=== PATIENT | female | born 1975 | race Caucasian/White ===

== ENCOUNTER → 2020-02-02 14:36 | Outpatient (BNVA) | payer OTHER, SELFPAY | PROVIDERS: Family Provider Family Medicine; PCP Family Medicine; Visit Provider Nurse Practitioner Family | DX: J02.9 Acute pharyngitis, unspecified (principal); J34.89 Other specified disorders of nose and nasal sinuses; R51 Headache; R53.83 Other fatigue; Z20.828 Contact with and (suspected) exposure to other viral communicable diseases | CPT/HCPCS: 87635 ==

== ENCOUNTER 2020-03-24 14:37 | Outpatient (CLI) | payer OTHER, SELFPAY ==
--- NOTE | 2020-03-24 14:46 | MM_ITS ---
WS: [id number] BILATERAL DIGITAL SCREENING MAMMOGRAM WITH CAD CLINICAL INFORMATION: SCREENING HISTORY: Screening mammogram. No current complaints. COMPARISON: August 07, 2018 TECHNIQUE: Bilateral CC and MLO. FINDINGS: The breast are composed of extremely dense tissue, which can limit the detection of small underlying mass lesions. No suspicious focal mass, asymmetry, calcifications, or architectural distortion. No ev idence of malignancy. MM/[place] [id number] IMPRESSION: BI-RADS: 1-Negative FOLLOW UP: 1 Year Follow-up Recommend return to annual screening mammography.
== END 2020-03-24 14:38 | disposition home or self-care (01) ==
LOC: RADSHAW 14:43
PROVIDERS: PCP Family Medicine; Visit Provider Nurse Practitioner Family
DX: Z12.31 Encounter for screening mammogram for malignant neoplasm of breast (principal)
CPT/HCPCS: 77067

== ENCOUNTER → 2020-06-10 17:14 | Outpatient (BNVA) | payer OTHER, SELFPAY | PROVIDERS: PCP Family Medicine; Visit Provider Nurse Practitioner Family | DX: Z20.828 Contact with and (suspected) exposure to other viral communicable diseases (principal) | CPT/HCPCS: 87635 ==

== ENCOUNTER 2020-11-07 12:17 | Emergency (ER) | payer BC, SELFPAY ==
[2020-11-07 12:20] VITALS: BP 115/81; PULSE 104; RESP 18; TEMP 37.9; O2SAT 98; BMI 21.4
--- NOTE | 2020-11-07 12:26 | XRR_ITS ---
PROCEDURE INFORMATION: Exam: XR Chest Exam date and time: 11/07/2020 12:50 PM Age: 45 years old Clinical indication: Cough and fever; Additional info: Cough, fever TECHNIQUE: Imaging protocol: XR of the chest. Views: 1 view. COMPARISON: CT chest w con* [id number] 08/13/2017 6:43 PM FINDINGS: Lungs: Unremarkable. No consolidation. Pleural spaces: Unremarkable. No pleural effusion. No pneumothorax. Heart/Mediastinum: Unremarkable. No cardiomegaly. Bones/joints: Unremarkable. XR/XR chest 1V portable [id number] IMPRESSION: No acute findings.
--- NOTE | 2020-11-07 14:48 | ED_ITS ---
HPI - Fever General: Chief Complaint: Fever Stated Complaint: FEVER, N/V, COUGH, MUSCLED ACHES Time Seen by Provider: 11/07/20 14:44 History of Present Illness: HPI Narrative: Patient comes in for fever since Saturday. Patient reports cough and fever with generalized body aches. Patient appears mildly unwell. Patient does not appear toxic.'s are even. Patient does not appear in severe pain. Patient is employed at [employer] and they recently had a positive COVID-19 case. MD elicited complaint: fever and malaise Onset (ago): day(s) Context: sick contacts Exacerbating factors: nothing Relieving factors: nothing Associated symptoms: Reports chills and cough Review of Systems General: Reports: 10 or more systems reviewed and unremarkable except in HPI and below Const: Reports: fever(s) and chills Resp: Reports: non-productive cough PFSH ED PFSH: Medical History (Updated 11/07/20 @ 15:49 by PREMA Cummings) Encounter for surgical aftercare following surgery on the genitourinary system 11/21/18 Patient status post home biopsy 6 weeks ago. Refers a yellowish greenish vaginal discharge. Metronidazole prescribed prophylactically. Patient was counseled regarding against alcohol consumption while taking the metronidazole. Was also counseled regarding the benign pathology report on the cone biopsy and recommendation to repeat Cotesting in 6 months. 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 Barriga at [facility] 1. anterior cervical lip: rare dysplastic cells, excoriated mucosa 2. posterior cervical lip: no squamous dysplasia or endocervical atypia identified S/P breast biopsy, left Family History Family/Other Patient denies medical problems Patient denies any family history of hypertension, diabetes, heart disease, stroke, hypercholesterolemia, thryoid problems, breast cancer, ovarian cancer, uterine cancer, colon cancer. Social History Smoking and tobacco status: never smoked Alcohol intake: never Female Reproductive History: Date of last menstrual period: 11/04/20 Physical Exam Const: COMMON NORMALS: no acute distress and patient oriented x3 GENERAL APPEARANCE: cooperative HENMT: COMMON NORMALS: normocephalic, TM's normal bilaterally and Normal external nose present HEAD & SCALP: normal to inspection and normocephalic NOSE: Normal external nose present TYMPANIC MEMBRANE: TM's normal bilaterally MOUTH: Normal oral and palatal mucosa present THROAT: posterior oropharynx normal Eye: GENERAL EYE: appearance normal, both eyes and all related structures Neck/C-Spine: COMMON NORMALS: full ROM Lymph: LYMPHATIC: no lymphadenopathy noted Chest: COMMONS NORMALS: normal inspection of the chest Resp: COMMON NORMALS: normal respiratory effort EFFORT & INSPECTION: Yes able to speak in complete sentences Cardio: COMMON NORMALS: regular rate and regular rhythm RATE: regular rate RHYTHM: regular rhythm GI: COMMON NORMALS: non-tender Back/Pelvis: COMMON NORMALS: thoracic and lumbar spine normal to inspection Extremity: COMMON NORMALS: normal to inspection Neuro: COMMON NORMALS: patient oriented x3 and moves all extremities Psych: COMMON NORMALS: mental status grossly normal and cooperative Skin: COMMON NORMALS: no rashes or lesions noted GENERAL SKIN EXAM: no rashes or lesions noted Course Vital Signs: Vital signs: Vital Signs Temperature 100.3 F H 11/07/20 12:20 Pulse Rate 98 11/07/20 15:52 Respiratory Rate 20 H 11/07/20 15:52 Blood Pressure 115/81 11/07/20 12:20 Pulse Oximetry 100 11/07/20 15:52 MDM - Fever MDM Narrative: Medical decision making narrative: Patient comes in today for complaints of cough, congestion, and fever since Saturday. Patient reports exposure to a COVID-19 individual [address] her place of employment. On exam patient is alert oriented. Patient has occasional cough. Patient's lungs are clear to auscultation. Posterior pharynx slightly erythematous. Skin was warm and dry. Differential diagnosis includes upper respiratory infection, viral syndrome, COVID-19, influenza. COVID-19 test was positive. Chest x-ray was normal. CBC and CMP were unremarkable. Patient was given 1 L of IV fluid for concerns of dehydration on initial exam. Patient improvement in symptoms prior to discharge with IV fluids and ketorolac. Patient was recommended to provide supportive care was given instruction on COVID-19. Patient reported understanding and agreed to plan. Lab Data: Labs: Lab Results 11/07/20 11/07/20 11/07/20 Range/Units 15:08 15:08 15:08 WBC 4.0 (4.0-10.0) 10^3/ uL RBC 4.55 (4.1-5.3) 10^6/u L Hgb 12.4 (11.5-15.3) g/dL Hct 39.8 (37.0-47.0) % MCV 87.5 (81-99) fL MCH 27.3 L (28.0-34.0) pg MCHC 31.2 (30.0-36.0) g/dL RDW 15.0 (12.1-15.1) % Plt Count 237 (130-400) 10^3/c mm MPV 10.5 H (7.4-10.4) fL Neut % (Auto) 66.1 % Lymph % (Auto) 19.4 % [place] % (Auto) 13.4 % Eos % (Auto) 0.3 % Baso % (Auto) 0.5 % Neut # (Auto) 2.62 (1.8-7.7) 10^3/u L Lymph # (Auto) 0.8 (0.8-4.8) 10^3/u L [place] # (Auto) 0.5 (0.2-0.9) 10^3/u L Eos # (Auto) 0.0 (0.0-0.8) 10^3/u L Baso # (Auto) 0.0 (0.0-0.1) 10^3/u L Nucleated RBC % (a uto) 0 % Nucleated RBCs # 0.0 /100WBC Sodium 132 L (136-145) mmol/L Potassium 3.4 L (3.5-5.1) mmol/L Chloride 100 (98-107) mmol/L Carbon Dioxide 25 (22-29) mmol/L Anion Gap 10.4 (5-19) BUN 10 (6-20) mg/dL Creatinine 0.6 (0.5-0.9) mg/dL GFR Calculation 108.6 (90-130) mL/min Glucose 83 (65-115) mg/dL Calculated Osmolal ity 272 L (285-295) mOsm/k g Calcium 8.3 L (8.5-10.5) mg/dL Total Bilirubin 0.2 (0.15-1.2) mg/dL AST 15 (0-32) U/L ALT 7 (0-33) U/L Alkaline Phosphata se 86 (35-105) IU/L Total Protein 7.2 (6.6-8.7) g/dL Albumin 4.2 (3.5-5.2) g/dL Globulin 3.0 (1.3-4.6) g/dL SARS-CoV-2 Ag (Rap id) Positive H (Negative) Discharge Plan Discharge Patient Disposition: Home Clinical Impression: COVID-19 Condition: Stable Prescriptions: No Action No Known Home Medications RF: 0 Discharge Orders: Discharge ED (Routine); Ordered 11/07/20 Ordered By: Preet Kelley Referrals: Nelsy Cummings MD [Primary Care Provider] - Discharge Diet: Usual diet Discharge Activity: Increase activity as tolerated Patient Instructions: Viral Syndrome (ED), Opioid Safety Activity Restrictions/Additional Instructions: Drink plenty of fluids. Use acetaminophen and ibuprofen for pain. Activity as tolerated. Self quarantine for 10 days since start of infection. Healthy diet. Avoid smoking. Get plenty of rest. Follow-up with primary care as needed. Return to the emergency department for worsening symptoms or new concerns. 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
[2020-11-07 15:16] LABS: Basophils % 0.5 %; Eosinophils % 0.3 %; Hematocrit 39.8 % (37.0-47.0); Hemoglobin 12.4 g/dL (11.5-15.3); Lymphocytes # 0.8 10^3/uL (0.8-4.8); Lymphocytes % 19.4 %; Mean Corpuscular HGB Conc 31.2 g/dL (30.0-36.0); Mean Corpuscular Hemoglobin 27.3 pg (28.0-34.0); Mean Corpuscular Volume 87.5 fL (81-99); Mean Platelet Volume 10.5 fL (7.4-10.4); Monocytes # 0.5 10^3/uL (0.2-0.9); Monocytes % 13.4 %; Neutrophils # 2.62 10^3/uL (1.8-7.7); Neutrophils % 66.1 %; Nucleated Red Blood Cells % 0 %; Platelet Count 237 10^3/cmm (130-400); Red Blood Count 4.55 10^6/uL (4.1-5.3)
[2020-11-07] MEDS: ketorolac 30 mg/mL INJ 15 MG IVP (15:19)
[2020-11-07] MEDS: sodium chloride 0.9% 1,000 ML 999 ML IV (15:22)
--- NOTE | 2020-11-07 15:22 | PC.NURSE ---
pt provided with a bedside commode and specimen cup. pt verbalizes understanding of providing a urine sample.
[2020-11-07 15:34] LABS: Alanine Aminotransferase 7 U/L (0-33); Albumin Level 4.2 g/dL (3.5-5.2); Alkaline Phosphatase 86 IU/L (35-105); Anion Gap 10.4 (5-19); Aspartate Amino Transferase 15 U/L (0-32); Blood Urea Nitrogen 10 mg/dL (6-20); Calcium 8.3 mg/dL (8.5-10.5); Carbon Dioxide 25 mmol/L (22-29); Chloride 100 mmol/L (98-107); Glomerular Filtration Rate 108.6 mL/min (90-130); Glucose 83 mg/dL (65-115); Osmolality Calculated 272 mOsm/kg (285-295); Potassium 3.4 mmol/L (3.5-5.1); Sodium 132 mmol/L (136-145); Total Bilirubin 0.2 mg/dL (0.15-1.2); Total Protein 7.2 g/dL (6.6-8.7)
[2020-11-07 15:42] LABS: SARS Covid-2 Antigen Positive (Negative)
[2020-11-07 15:52] VITALS: PULSE 98; RESP 20; O2SAT 100
== END 2020-11-07 16:25 | disposition home or self-care (01) ==
PROVIDERS: Emergency Provider Nurse Practitioner Family; PCP Family Medicine
DX: U07.1 COVID-19 (principal)
CPT/HCPCS: 71045; 80053; 85025; 87426; 96361; 96374; 99283; J1885; J7030

== ENCOUNTER 2021-05-05 13:27 | Outpatient (CLI) | payer OTHER, SELFPAY ==
--- NOTE | 2021-05-05 13:42 | MM_ITS ---
WS: [id number] SCREENING DIGITAL MAMMOGRAM WITH CAD HISTORY: SCREENING COMPARISON: 03/24/2020 and 08/07/2018 Bilateral CC and MLO views submitted. Computer aided detection analyzed. Breast composition: The breasts are heterogeneously dense, which may obscure small masses. No suspici ous masses, microcalcifications or architectural distortion. MM/[place] [id number] IMPRESSION: BI-RADS: 1-Negative FOLLOW UP: 1 Year Follow-up
== END 2021-05-05 13:28 | disposition home or self-care (01) ==
LOC: RADSHAW 13:31
PROVIDERS: PCP Family Medicine; Visit Provider Nurse Practitioner Family
DX: Z12.31 Encounter for screening mammogram for malignant neoplasm of breast (principal)
CPT/HCPCS: 77067

== ENCOUNTER → 2022-12-07 09:45 | Outpatient (BNVA) | payer OTHER, SELFPAY | PROVIDERS: PCP Family Medicine; Visit Provider Obstetrics & Gynecology | DX: N92.6 Irregular menstruation, unspecified (principal); R53.83 Other fatigue | CPT/HCPCS: 83001; 84146; 84443; 84702; 85025 ==

== ENCOUNTER 2022-12-20 14:25 | Outpatient (CLI) | payer OTHER, SELFPAY ==
--- NOTE | 2022-12-20 14:45 | US_ITS ---
WS: [id number] US transvaginal [id number] HISTORY: N92.6 - Irregular menstruation, unspecified COMPARISON: 04/30/2019 Very limited diagnostic evaluation of the pelvic structures. Uterus: 10.3 cm x 6.0 cm x 5.5 cm. Enlarged anteverted uterus. The uterus is very difficult to visualize. Margins and the myometrium are poorly visualized. There is a large amount of shadowing. Uterus is much better visualized on the spencer or examination. Fibroid or mass would be difficult to exclude. Endometrium: 0.8 cm. Extremely limited evaluation of the endometrium. On several of the images the en dometrium appears enlarged and heterogeneous but this is seen on transverse imaging. Measurements frankie uld not be obtained on transverse imaging. Study is not diagnostic to exclude endometrial abnormality . Right ovary: 2.6 cm x 1.5 cm x 3.1 cm. Normal size and vascularity, no cystic or solid masses. Left ovary: 2.8 cm x 2.5 cm x 1.9 cm. Normal size and vascularity, no cystic or solid masses. Small f ollicle. No free fluid in the cul-de-sac. US/US transvaginal [id number] IMPRESSION: 1. Very limited diagnostic quality of the uterus and adnexa. This study is not adequate to exclude fibroids or endometrial abnormality. 2. On several of the images the endometrium appears larger than the 8 mm measu red. If there is continued uterine bleeding direct visualization may be necessa ry.
== END 2022-12-20 14:26 | disposition home or self-care (01) ==
PROVIDERS: PCP Family Medicine; Visit Provider Obstetrics & Gynecology
DX: N92.6 Irregular menstruation, unspecified (principal)
CPT/HCPCS: 76830; 83001; 84146; 84443; 84702; 85025

== ENCOUNTER 2023-03-05 07:42 | Day surgery (SDC) | payer OTHER, SELFPAY ==
[2023-02-28 09:31] VITALS: BMI 23.9
--- NOTE | 2023-02-28 09:48 | ANES.PREANE2 ---
Pre-Anesthetic Assessment Height/Weight: Height 1.57 m Weight 59.421 kg Operation Date: 03/05/23 09:45 Proposed Procedures p Hysteroscopy, dilation and curettage with Myosure 40264, 58746,N93.9,N92.0(Not Applicable) - Praveen Barriga MD s Dilation And Curettage (D&C)(Not Applicable) - Praveen Barriga MD Familial anesthetic complications: None Social No alcohol and No tobacco Exam alert, oriented x 3, clear to auscultation bilaterally and regular rate & rhythm Anesthetic Plan ASA status: 1 Anesthesia: General Risk of > 500 ml blood loss (7ml/kg in children): No Medications/Allergies Home Medications Medication Instructions Recorded Confirmed Last Taken Type acetaminophen 325 mg tablet 325 mg PO QID PRN Pain 11/28/21 02/28/23 Unknown History (Tylenol) multivitamin 1 tab PO DAILY 11/28/21 02/28/23 Unknown History Allergies Allergy/AdvReac Type Severity Reaction Status Date / Time povidone-iodine Allergy SWELLING, Verified 02/28/23 09:30 [From Betadine] REDNESS, RASH soap [From Betadine] Allergy SWELLING, Verified 02/28/23 09:30 REDNESS, RASH Sulfa (Sulfonamide Allergy SWELLING Verified 02/28/23 09:30 Antibiotics) [facility] Anesthesia Medical History Acute viral syndrome Encounter for surgical aftercare following surgery on the genitourinary system 11/21/18 Patient status post home biopsy 6 weeks ago. Refers a yellowish greenish vaginal discharge. Metronidazole prescribed prophylactically. Patient was counseled regarding against alcohol consumption while taking the metronidazole. Was also counseled regarding the benign pathology report on the cone biopsy and recommendation to repeat Cotesting in 6 months. 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 Barriga at [facility] 1. anterior cervical lip: rare dysplastic cells, excoriated mucosa 2. posterior cervical lip: no squamous dysplasia or endocervical atypia identified S/P breast biopsy, left Family History Family/Other Patient denies medical problems Patient denies any family history of hypertension, diabetes, heart disease, stroke, hypercholesterolemia, thryoid problems, breast cancer, ovarian cancer, uterine cancer, colon cancer. Social History Smoking and tobacco status: never smoked Alcohol intake: never Substance/Drug Use: never Data Anesthesia Cardiac Studies: No Data to Display
[2023-03-05] VITALS (12 sets, daily range): BP systolic 107–125; BP diastolic 66–75; PULSE 70–98; RESP 14–22; TEMP 36.5–36.8; O2SAT 97–99
[2023-03-05 08:11] LABS: OR HCG Qualitative Urine Negative (Negative)
[2023-03-05 08:44] LABS: Basophils % 0.5 %; Eosinophils # 0.1 10^3/uL (0.0-0.8); Eosinophils % 1.3 %; Hematocrit 38.2 % (36-47); Lymphocytes # 1.9 10^3/uL (0.8-4.8); Lymphocytes % 31.8 %; Mean Corpuscular HGB Conc 31.7 g/dL (30-55); Mean Corpuscular Hemoglobin 26.8 pg (27-33); Mean Corpuscular Volume 84.7 fl (85-98); Mean Platelet Volume 9.7 fL (7.4-10.4); Monocytes # 0.4 10^3/uL (0.2-0.9); Monocytes % 5.9 %; Neutrophils # 3.59 10^3/uL (1.8-7.7); Neutrophils % 60.3 %; Nucleated Red Blood Cells % 0 %; Platelet Count 335 10^3/cmm (157-399); Red Blood Count 4.51 10^6/uL (3.85-5.65); Red Cell Distribution Width 16.1 % (12.1-15.1); White Blood Count 5.95 10^3/uL (3.29-11.43)
[2023-03-05] MEDS: sodium chloride 0.9% 500 ML IV (08:46)
[2023-03-05] MEDS: sodium chloride 0.9% 1,000 ML 30 ML IV (08:47)
[2023-03-05] MEDS: scopolamine 1.5 Patch 1 PATCH TRANSDERMA (08:47)
[2023-03-05 09:05] LABS: Alanine Aminotransferase 8 U/L (0-33); Albumin Level 4.6 g/dL (3.5-5.2); Alkaline Phosphatase 84 U/L (35-105); Aspartate Amino Transferase 15 U/L (0-32); Blood Urea Nitrogen 14 mg/dL (6-20); Calcium 8.9 mg/dL (8.5-10.5); Carbon Dioxide 26 mmol/L (22-29); Chloride 105 mmol/L (98-107); Globulin 2.6 g/dL (1.3-4.6); Glomerular Filtration Rate 132.8 mL/min (90-130); Glucose 85 mg/dL (65-115); Osmolality Calculated 288 mOsm/kg (285-295); Sodium 139 mmol/L (136-145); Total Bilirubin 0.3 mg/dL (0.15-1.2); Total Protein 7.2 g/dL (6.6-8.7)
--- NOTE | 2023-03-05 09:16 | P.ANESUD_ITS ---
Pre-Anesthetic Update Pre-Anesthetic Assessment: Date of Surgery/Procedure: 03/05/23 Preop Laureen gnosis: Abnormal uterine bleeding Proposed Procedure: Operation Date: 03/05/23 09:25 Proposed Procedures p Hysteroscopy, dilation and curettage with Myosure 46435, 24372,N93.9,N92.0(Not Applicable) - Praveen Barriga MD s Dilation And Curettage (D&C)(Not Applicable) - Praveen Barriga MD Any changes to Pre-Anesthetic Assessment?: No Last Intake: Intake Last Liquid Date 03/04/23 Last Liquid Time 21:00 Last Solid Date 03/04/23 Last Solid Time 20:00 Labs Last 48hrs: Short CBC 03/05/23 Range/Units 08:25 WBC 5.95 (3.29-11.43) 10^ 3/uL Hgb 12.10 (11.27-16.99) g/ dL Hct 38.2 (36-47) % MCV 84.7 L (85-98) fl Plt Count 335 (157-399) 10^3/c mm Neut % (Auto) 60.3 % Neut # (Auto) 3.59 (1.8-7.7) 10^3/u L BMP 03/05/23 08:25 Sodium 139 Potassium 4.0 Chloride 105 Carbon Dioxide 26 BUN 14 Creatinine 0.5 Glucose 85 Calcium 8.9 Liver Function 03/05/23 Range/Units 08:25 Total Bilirubin 0.3 (0.15-1.2) mg/dL AST 15 (0-32) U/L ALT 8 (0-33) U/L Alkaline Phosphata se 84 (35-105) U/L Albumin 4.6 (3.5-5.2) g/dL Vitals: Temperature 97.7 F 03/05/23 08:02 Pulse Rate 75 03/05/23 08:02 Pulse Rhythm Regular 03/05/23 08:04 Pulse Strength 3+ Normal 03/05/23 08:04 Respiratory Rate 16 03/05/23 08:02 Blood Pressure 122/69 03/05/23 08:02 Blood Pressure Celeste n 86 03/05/23 08:02 Pulse Oximetry 98 03/05/23 08:02 Oxygen Delivery Me thod Room Air 03/05/23 08:04 Exam: Pre-Anes Outpt Exam: alert, oriented x 3, clear to auscultation bilaterally and regular rate & rhythm Cardiac Studies: No Data to Display
--- NOTE | 2023-03-05 09:51 | W.PM.OPSUD ---
Surgery/Procedure H&P Update DATE OF PROCEDURE: March 05, 2023 DATE H&P PERFORMED: 02/15/23 H&P UPDATE INFORMATION: I have reviewed H&P completed within last 30 days, I have examined patient prior to procedure and No changes to prior documentation PREOP DIAGNOSIS: Abnormal uterine bleeding PLANNED PROCEDURE: Operation Date: 03/05/23 09:25 Proposed Procedures p Hysteroscopy, dilation and curettage with Myosure 63461, 25673,N93.9,N92.0(Not Applicable) - Praveen Barriga MD s Dilation And Curettage (D&C)(Not Applicable) - Praveen Barriga MD
[2023-03-05] MEDS: ceFOXitin 2,000 MG in sodium chloride 0.9% (plus) 50 ML 100 MG IV (09:57)
[2023-03-05] MEDS: lidocaine-epi 2% 20 mL INJ INJECTION (10:17)
[2023-03-05 10:25] LABS: Add Urine Microscopic? NO; Charge for UA Resulting for Rev
--- NOTE | 2023-03-05 10:32 | P.OP_ITS ---
Operative Report Date of procedure: March 05, 2023 Pre-op diagnosis: Irregular menstrual bleeding (metrorrhagia) Post-op diagnosis: Same. Endometrial polyps Post-op findings: Endometrial polyp Procedure done: Hysteroscopy with D&C via MyoSure Hysteroscopic polypectomy Specimens removed/disposition: Endometrial curettings with polyps Surgeon: Praveen Barriga MD Estimated blood loss (mL): 5 IV fluids (mL): 1,000 Complications: None Findings: Endometrial polyps Procedure: After informed consent, the risks included but were not limited to bleeding, infection, injury to internal organs. The patient was counseled on a possible laparotomy and on the potential need for hysterectomy. The patient expressed understanding of the risks involved, all questions were answered, and the patient consented to the procedure. The patient was taken to the operating room where general anesthesia was administered. She was placed in the dorsal lithotomy position and prepped and draped in sterile fashion. A time out procedure was performed. The patient was examined under anesthesia and found to have a normal uterus with normal adnexa. A sterile weight speculum was placed in the vagina. The uterus was then gently sounded to 8 cm, and the cervix was dilated. The 0 degrees MyoSure hysteroscope was advanced gently to the uterine fundus while visualizing the monitor. Survey of the uterine cavity showed: Multiple endometrial polyps, the fundus shows proliferative endometrium; left ostium was visualized, and lateral wall with proliferative endometrium; right ostium visualized, and lateral wall with proliferative endometrium and endometrial poly p; anterior and posterior wall with endometrial polyps; endocervical canal is normal. The MyoSure device was advanced and the direct visualization the polyps were morcellated without complication. At the end of morcellation the fluid deficit was 260 mL and was estimated at approximately 200 mL were on the floor. There was minimal bleeding noted and the tenaculum removed with goad hemostasis noted. The patient tolerated the procedure well. The patient was taken to the recovery area in stable condition.
[2023-03-05 10:38] LABS: Bilirubin Urine Neg (Negative); Blood Urine Neg (Negative); Glucose Urine UA Norm (Normal); Ketones Urine Negative (Negative); Leukocyte Esterase Urine Negative (Negative); Nitrate Urine Negative (Negative); Protein Urine Neg (Negative); Specific Gravity, Urine 1.005 (1.005-1.030); Urine Appearance Clear (CLEAR); Urine Color Yellow (Yellow); Urobilinogen Urine Norm (Negative); pH Urine 7 (5-7)
--- NOTE | 2023-03-05 12:45 | ANE.PACU2 ---
Inpatient post-anesthesia follow up: Airway intact: Yes Vital signs: Temperature 97.8 F Pulse Rate 77 Respiratory Rate 16 Blood Pressure 113/72 Pulse Oximetry 97 Oxygen Delivery Me thod Room Air Oxygen Flow Rate Fraction of Inspir ed Oxygen Hydration adequate: Yes Nausea and vomiting: No Pain level: 1 Mental status: Baseline
== END 2023-03-05 12:55 | disposition home or self-care (01) ==
PROVIDERS: PCP Family Medicine; Visit Provider Obstetrics & Gynecology
PROC: 0UDB8ZZ Extraction of Endometrium, Via Natural or Artificial Opening Endoscopic (ICD-10-PCS; CPT 58558; principal; 2023-03-05 09:15)
PROC: (CPT 58120; 2023-03-05 09:15)
DX: N92.1 Excessive and frequent menstruation with irregular cycle (principal); N84.0 Polyp of corpus uteri
CPT/HCPCS: 58558; 36415; 80053; 81003; 81025; 84703; 85025; 86850; 86900; 88305; J0694; J1100; J2371; J2405; J2704; J3010; J7030; J7040

== ENCOUNTER → 2023-03-19 13:35 | Outpatient (BNVA) | payer OTHER, SELFPAY | PROVIDERS: PCP Family Medicine; Visit Provider Nurse Practitioner Women's Health | DX: R30.0 Dysuria (principal) | CPT/HCPCS: 81000; 87086 ==

== ENCOUNTER 2023-06-17 15:06 | Outpatient (CLI) | payer OTHER, SELFPAY ==
--- NOTE | 2023-06-17 15:10 | MM_ITS ---
WS: [id number] Bilateral screening 3D tomosynthesis digital mammogram, 06/17/2023 Clinical Data: SCREEN Comparison: 05/05/2021, 03/24/2020, 08/07/2018, 06/04/2017. Findings: The breast parenchymal pattern shows fat replacement. No spiculated masses or clustered calcification s are seen. There are no secondary signs of carcinoma. Impression: 1. Negative bilateral mammogram unchanged. 2. Recommend annual screening mammograms. MM/[place] [id number] BIRADS: 1-Negative FOLLOW UP: 1 Year Follow-up The CAD cash checker was used.
== END 2023-06-17 15:07 | disposition home or self-care (01) ==
LOC: RAD 15:06
PROVIDERS: PCP Family Medicine; Visit Provider Family Medicine
DX: Z12.31 Encounter for screening mammogram for malignant neoplasm of breast (principal)
CPT/HCPCS: 77063; 77067

== ENCOUNTER → 2023-07-04 16:30 | Outpatient (BNVA) | payer BC, SELFPAY | PROVIDERS: PCP Family Medicine; Visit Provider Family Medicine | DX: D36.7 Benign neoplasm of other specified sites (principal) | CPT/HCPCS: 88304 ==

== ENCOUNTER 2023-11-15 12:27 | Emergency (ER) | payer BC, SELFPAY ==
[2023-11-15 12:35] VITALS: BP 120/69; PULSE 97; RESP 16; TEMP 37.1; O2SAT 98; BMI 22.9
--- NOTE | 2023-11-15 12:45 | XR_ITS ---
WS: [id number] Portable AP upright chest, 11/15/2023 Clinical Data: cough/congestion Comparison: Portable chest, 11/07/2020 Findings: No nodules, masses or effusions are seen. The heart is normal. The pulmonary vascularity is not increased. No pneumonia or pneumothorax is seen. XR/XR chest 1V portable [id number] Impression: Negative chest.
--- NOTE | 2023-11-15 13:17 | ED_ITS ---
HPI - URI/Sore Throat 2 General: Chief Complaint: Shortness of Breath/Dyspnea Stated Complaint: sob, n/v, headache, body aches Time Seen by Provider: 11/15/23 12:30 Source: patient Mode of arrival: ambulatory Limitations: no limitations History of Present Illness: Patient is a 48-year-old female presents to ED today stating I have been sick for 12 days . She is complaining of a frequent dry cough. She states she has been her headache and some bodyaches. Patient states she has been to urgent care twice. She is currently taking azithromycin. She has also been instructed to take Flonase and May. Patient states she is starting to feel worn down and fatigued and does not feel like she is improving thus prompting her emergency evaluation. She is not having any chest pain. Her vital signs are completely normal upon arrival. MD elicited complaint: cough Onset (ago): day(s) (12 days) Consistency: constant Severity: moderate Able to tolerate fluids by mouth: Yes Exacerbating factors: nothing Relieving factors: nothing Context: sick contacts (niece with similar symptoms-she was flu A +) Associated symptoms: Deny abdominal pain, chills, diarrhea, ear or mastoid pain, fever(s), headache(s), nasal congestion, nausea, sinus pain or vomiting Treatments prior to arrival: cold medicine and antibiotics Review of Systems 2 Const: Reports: body aches, fatigue and malaise; Denies: fever(s) or chills Eyes: Denies: change in vision, blurry vision, photophobia, eye discomfort or eye discharge ENMT: Denies: throat pain, enlarged tonsils, odynophagia, swelling of lips/tongue, oral sores, ear or mastoid pain, ear discharge, nasal discharge, nasal congestion, post nasal drip or sinus pain Resp: Reports: dyspnea and non-productive cough; Denies: productive cough, wheezing, pain on inspiration, change in phlegm color, hemoptysis or chest congestion GI: Denies: abdominal pain, nausea, vomiting or diarrhea Musc: Denies: back pain Neuro: Denies: headache(s) or dizziness All/Imm: Denies: facial swelling or seasonal rhinorrhea PFSH ED 2 PFSH: Medical History COVID-19 Nonmenstrual vaginal bleeding 43-year-old female with irregular vaginal spotting bleeding, seen in the ER. Patient is status post cone biopsy in September 2018. No cervical lesions seen. Patient refers she's been using Depo-Provera shots and she did not get the last one as scheduled. The patient was counseled the most common causes of abnormal menstrual bleeding are: anovulation, abnormal growths in the uterus, such as polyps or fibroids, long active contraceptives and bleeding disorders. Evaluation entails blood tests to look for a bleeding disorder, anemia, or thyroid disease, a pelvic ultrasound, which can detect endometrial polyps and fibroids, an endometrial biopsy or a hysteroscopy. Treatment options are medical treatment and surgical treatment. But the best treatment of heavy menstrual bleeding will depend on the cause of the bleeding and the patient?s preferences with need to prevent or desire to have children in the future. Medical treatment can be Hormonal control, (the pill, skin patch, vaginal ring, shot, hormonal IUD, and implant), Antifibrinolytic medicines, Non-steroidal anti-inflammatory drugs, Progestin pills, GnRH agonists. 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 Benign polyp and disordered endometrium. H/O tubal ligation History of biopsy (10/08/18) CERVICAL CONE BIOPSY per Dr. Barriga at [facility] 1. anterior cervical lip: rare dysplastic cells, excoriated mucosa 2. posterior cervical lip: no squamous dysplasia or endocervical atypia identified S/P breast biopsy, left Family History Mother Cancer Cervical Grandfather Cancer Maternal and Paternal-Pancreatic Other Dementia Thyroid disease Denies family history of Liver disease Diabetes CAD (coronary artery disease) Aneurysm Autoimmune disease Hyperlipidemia Psychiatric illness Chronic kidney disease (CKD) Bleeding disorder Lung disease Hypertension Stroke Social History (Reviewed 11/15/23 @ 13:29 by RICKIE Sanchez Smoking and tobacco/nicotine status: never used tobacco/nicotine Alcohol intake: never Substance/Drug Use: never Lives independently: Yes Marital status: Single Number of children: 3 Current occupational status: employed 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 Special [place] needs: No Physical Exam 2 Const: COMMON NORMALS: no acute distress, average body habitus, patient oriented x3, no limitations, healthy appearing, alert and well nourished G ENERAL APPEARANCE: cooperative ORIENTATION/CONSCIOUSNESS: Yes awake, Yes oriented to person, Yes oriented to place and Yes oriented to time HENMT: COMMON NORMALS: normocephalic, atraumatic, hearing grossly normal bilaterally, external ears normal, EAC's normal, TM's normal bilaterally, Normal external nose present, Normal nasal mucous membranes and turbinates present, moist oral mucous membranes and oropharynx normal HEAD & SCALP: normal to inspection, normocephalic and atraumatic FACE & SINUS: normal facial exam and sinuses nontender; no sinus tenderness NOSE: Normal external nose present and Normal nasal mucous membranes and turbinates present EXTERNAL EAR: Yes external ears normal EXTERNAL AUDITORY CANAL: EAC's normal TYMPANIC MEMBRANE: TM's normal bilaterally THROAT: posterior oropharynx normal, tonsils normal and uvula midline Eye: COMMON NORMALS: Equal, round and reactive pupils present, EOMs intact bilaterally and conjunctivae normal CONJUNCTIVA: Yes conjunctivae normal P UPIL: Yes Equal, round and reactive pupils present Neck/C-Spine: COMMON NORMALS: no lymphadenopathy Chest: COMMONS NORMALS: normal inspection of the chest and normal palpation of entire chest wall Resp: COMMON NORMALS: normal respiratory effort and clear to auscultation bilaterally AUSCULTATION: clear to auscultation bilaterally Cardio: COMMON NORMALS: regular rate and regular rhythm RATE: regular rate RHYTHM: regular rhythm Extremity: COMMON NORMALS: no clubbing, cyanosis or edema, no calf tenderness and no pedal edema GENERAL: Yes normal exam except as noted Neuro: DAYAN COMA SCALE: document GCS findings Advance coma scale eye opening: Spontaneous Dayan coma scale verbal response: Orientated Advance coma scale motor response: Obey commands Advance coma scale total score: 15 COMMON NORMALS: patient oriented x3 SENSORIUM/ORIENTATION: Yes alert, Yes oriented to person, Yes oriented to place and Yes oriented to time Skin: COMMON NORMALS: no rashes or lesions noted GENERAL SKIN EXAM: no rashes or lesions noted Course 2 Vital Signs: Vital signs: Vital Signs Temperature 98.7 F 11/15/23 12:35 Pulse Rate 84 11/15/23 15:00 Respiratory Rate 16 11/15/23 12:35 Blood Pressure 116/76 11/15/23 15:00 Pulse Oximetry 100 11/15/23 15:00 Oxygen Delivery Me thod Room Air 11/15/23 15:00 MDM - URI/Sore Throat Medical Decision Making Patient here for signs and symptoms of an upper respiratory illness. Her main concern is cough x 12 days. She arrives no acute distress. Her vital signs are stable. Blood work is nonactionable. Her CXR is unremarkable. Patient is already on azithromycin. She is also taking Flonase and May. Will place her on a steroid taper. Recommend follow-up with primary care next week. Return ED precautions given. Respiratory panel collected and pending. Differential Diagnosis Likely upper respiratory infection, viral infection, bronchitis and influenza Lab Data I reviewed the patient's lab results. 11/15/23 14:20 11/15/23 14:20 Radiology Impressions Chest X-Ray 11/15/23 12:45 Impression: Negative chest. Laboratory Results WBC 12.61 10^3/uL (3.29-11.43) H 11/15/23 14:20 RBC 4.65 10^6/uL (3.85-5.65) 11/15/23 14:20 Hgb 11.50 g/dL (11.27-16.99) 11/15/23 14:20 Hct 38.2 % (36-47) 11/15/23 14:20 MCV 82.2 fl (85-98) L 11/15/23 14:20 MCH 24.7 pg (27-33) L 11/15/23 14:20 MCHC 30.1 g/dL (30-55) 11/15/23 14:20 RDW 17.2 % (12.1-15.1) H 11/15/23 14:20 Plt Count 359 10^3/cmm (157-399) 11/15/23 14:20 MPV 10.3 fL (7.4-10.4) 11/15/23 14:20 Neut % (Auto) 80.6 % 11/15/23 14:20 Lymph % (Auto) 11.7 % 11/15/23 14:20 [place] % (Auto) 7.0 % 11/15/23 14:20 Eos % (Auto) 0.1 % 11/15/23 14:20 Baso % (Auto) 0.2 % 11/15/23 14:20 Neut # (Auto) 10.16 10^3/uL (1.8-7.7) H 11/15/23 14:20 Lymph # (Auto) 1.5 10^3/uL (0.8-4.8) 11/15/23 14:20 [place] # (Auto) 0.9 10^3/uL (0.2-0.9) 11/15/23 14:20 Eos # (Auto) 0.0 10^3/uL (0.0-0.8) 11/15/23 14:20 Baso # (Auto) 0.0 10^3/uL (0.0-0.1) 11/15/23 14:20 Nucleated RBC % (auto) 0 % 11/15/23 14:20 Nucleated RBCs # 0.0 /100WBC 11/15/23 14:20 Sodium 135 mmol/L (136-145) L 11/15/23 14:20 Potassium 3.7 mmol/L (3.5-5.1) 11/15/23 14:20 Chloride 101 mmol/L (98-107) 11/15/23 14:20 Carbon Dioxide 21 mmol/L (22-29) L 11/15/23 14:20 Anion Gap 16.7 (5-19) 11/15/23 14:20 BUN 9 mg/dL (6-20) 11/15/23 14:20 Creatinine 0.6 mg/dL (0.5-0.9) 11/15/23 14:20 GFR Calculation 107.2 mL/min (90-130) 11/15/23 14:20 Glucose 98 mg/dL (65-115) 11/15/23 14:20 Calculated Osmolality 279 mOsm/kg (285-295) L 11/15/23 14:20 Calcium 8.8 mg/dL (8.5-10.5) 11/15/23 14:20 Total Bilirubin 0.2 mg/dL (0.15-1.2) 11/15/23 14:20 AST 19 U/L (0-32) 11/15/23 14:20 ALT 13 U/L (0-33) 11/15/23 14:20 Alkaline Phosphatase 115 U/L (35-105) H 11/15/23 14:20 Total Protein 7.6 g/dL (6.6-8.7) 11/15/23 14:20 Albumin 3.6 g/dL (3.5-5.2) 11/15/23 14:20 Globulin 4.0 g/dL (1.3-4.6) 11/15/23 14:20 All radiology interpretation(s) finalized by discharge Discharge Plan Discharge Patient Disposition: Home Clinical Impression: Viral upper respiratory tract infection with cough Condition: Stable Prescriptions: New prednisone 10 mg tablet 10 mg PO DAILY 6 Days Qty: 20 0RF Rx Instructions: Take 5 tabs on day 1-2, 4 tabs on day 3, 3 tabs on day 4, 2 tabs on day 5, and 1 tab on day 6 No Action norgestimate-ethinyl estradiol [Estarylla] 0.25-35 mg-mcg tablet 1 tab PO DAILY Qty: 84 3RF ondansetron 4 mg tablet,disintegrating 4 mg PO Q8H PRN (Reason: nausea and vomiting) Qty: 20 0RF fluticasone propionate [Flonase Allergy Relief] 50 mcg/actuation spray,suspension 1 spray intranasal DAILY Qty: 16 0RF azithromycin 250 mg tablet See Rx Instructions PO .COMPLEX Qty: 6 0RF Rx Instructions: take 500 mg today (day 1), then 250 mg for 4 days (days 2-5) PO acetaminophen 325 mg capsule 325 mg PO Q4H PRN (Reason: pain/fever) Discharge Orders: Discharge ED (Routine); Ordered 11/15/23 Ordered By: Adilene De Souza Referrals: Ricardo Eason MD [Primary Care Provider] - Patient Instructions: Upper Respiratory Infection (DC) Coding Level of Care Code ED Alining Inspector for Trisha Villegas
[2023-11-15 13:30] VITALS: BP 129/80; PULSE 91; O2SAT 100
[2023-11-15 14:48] LABS: Basophils % 0.2 %; Eosinophils % 0.1 %; Hematocrit 38.2 % (36-47); Lymphocytes # 1.5 10^3/uL (0.8-4.8); Lymphocytes % 11.7 %; Mean Corpuscular HGB Conc 30.1 g/dL (30-55); Mean Corpuscular Hemoglobin 24.7 pg (27-33); Mean Corpuscular Volume 82.2 fl (85-98); Mean Platelet Volume 10.3 fL (7.4-10.4); Monocytes # 0.9 10^3/uL (0.2-0.9); Neutrophils # 10.16 10^3/uL (1.8-7.7); Neutrophils % 80.6 %; Nucleated Red Blood Cells % 0 %; Platelet Count 359 10^3/cmm (157-399); Red Blood Count 4.65 10^6/uL (3.85-5.65); Red Cell Distribution Width 17.2 % (12.1-15.1); White Blood Count 12.61 10^3/uL (3.29-11.43)
[2023-11-15 15:00] VITALS: BP 116/76; PULSE 84; O2SAT 100
[2023-11-15 15:08] LABS: Alanine Aminotransferase 13 U/L (0-33); Albumin Level 3.6 g/dL (3.5-5.2); Alkaline Phosphatase 115 U/L (35-105); Aspartate Amino Transferase 19 U/L (0-32); Blood Urea Nitrogen 9 mg/dL (6-20); Calcium 8.8 mg/dL (8.5-10.5); Carbon Dioxide 21 mmol/L (22-29); Chloride 101 mmol/L (98-107); Creatinine Clr Calc Pharmacy 100.4923; Glomerular Filtration Rate 107.2 mL/min (90-130); Glucose 98 mg/dL (65-115); Osmolality Calculated 279 mOsm/kg (285-295); Sodium 135 mmol/L (136-145); Total Bilirubin 0.2 mg/dL (0.15-1.2); Total Protein 7.6 g/dL (6.6-8.7)
[2023-11-15 15:13] LABS: Anion Gap 16.7 (5-19); Potassium 3.7 mmol/L (3.5-5.1)
[2023-11-15 15:23] VITALS: BP 116/76; PULSE 87; O2SAT 99
[2023-11-15 15:29] LABS: Adenovirus Not Detected (NOT DETECT); Chlamydia Pneumoniae Not Detected (NOT DETECT); Coronavirus 229E,HKU1,NL63,OC4 Not Detected (NOT DETECT); Human Metapneumovirus Not Detected (NOT DETECT); Human Rhinovirus/Enterovirus Not Detected (NOT DETECT); Influenza A Not Detected (NOT DETECT); Influenza A H1 Not Detected (NOT DETECT); Influenza A H1-2009 Not Detected (NOT DETECT); Influenza A H3 Not Detected (NOT DETECT); Influenza B Not Detected (NOT DETECT); Mycoplasma Pneumoniae Not Detected (NOT DETECT); Parainfluenza Virus Type 1 Not Detected (NOT DETECT); Parainfluenza Virus Type 2 Not Detected (NOT DETECT); Parainfluenza Virus Type 3 Not Detected (NOT DETECT); Parainfluenza Virus Type 4 Not Detected (NOT DETECT); Respiratory Syncytial Virus A Not Detected (NOT DETECT); Respiratory Syncytial Virus B Not Detected (NOT DETECT); SARS-COV-2 Not Detected (NOT DETECT)
== END 2023-11-15 15:22 | disposition home or self-care (01) ==
PROVIDERS: Emergency Provider Physician Assistant; PCP Family Medicine
DX: J06.9 Acute upper respiratory infection, unspecified (principal)
CPT/HCPCS: 36415; 71045; 80053; 85025; 87486; 87581; 87633; 99284

== ENCOUNTER 2024-06-16 10:02 | Observation (INO) | payer BC, SELFPAY ==
[2024-06-08 10:16] LABS: Basophils % 0.4 %; Eosinophils # 0.1 10^3/uL (0.0-0.8); Eosinophils % 0.8 %; Hematocrit 37.3 % (36-47); Lymphocytes # 1.8 10^3/uL (0.8-4.8); Lymphocytes % 23.5 %; Mean Corpuscular HGB Conc 31.4 g/dL (30-55); Mean Corpuscular Hemoglobin 26.2 pg (27-33); Mean Corpuscular Volume 83.4 fl (85-98); Mean Platelet Volume 10.2 fL (7.4-10.4); Monocytes # 0.5 10^3/uL (0.2-0.9); Monocytes % 6.4 %; Neutrophils # 5.35 10^3/uL (1.8-7.7); Neutrophils % 68.6 %; Nucleated Red Blood Cells % 0 %; Platelet Count 343 10^3/cmm (157-399); Red Blood Count 4.47 10^6/uL (3.85-5.65); Red Cell Distribution Width 17.6 % (12.1-15.1); White Blood Count 7.79 10^3/uL (3.29-11.43)
[2024-06-08 10:20] LABS: Bilirubin Urine Negative (Negative); Blood Urine Non-haemolysed trace (Negative); Glucose Urine UA Negative (Normal); Ketones Urine Negative (Negative); Leukocyte Esterase Urine Negative (Negative); Nitrate Urine Negative (Negative); Protein Urine Negative (Negative); Specific Gravity, Urine 1.003 (1.005-1.030); Urine Appearance Clear (CLEAR); Urine Color Yellow (Yellow); Urobilinogen Urine 0.2 mg/dL (Negative); pH Urine 6.5 (5-7)
--- NOTE | 2024-06-08 10:23 | ANES.PREANE2 ---
Pre-Anesthetic Assessment Height/Weight: Height 5 ft 3 in Preop Diagnosis: Abnormal uterine bleeding unresponsive to medical management Operation Date: 06/16/24 07:00 Proposed Procedures p Total Vaginal Hysterectomy - 07421, N93.9(Not Applicable) - Praveen Barriga MD Was [employer] taken within 24 hours: N/A Was Clonidine taken within 24 hours: N/A Social No alcohol and No tobacco Exam alert, oriented x 3, clear to auscultation bilaterally and regular rate & rhythm Airway Submandibular: within normal limits Cervical ROM: within normal limits Mallampati: Class II Dentition: full Anesthetic Plan ASA status: 2 Anesthesia: General Other: No prior issues with anesthesia Plan to be n.p.o. at midnight prior to surgery Denies any cardiac or pulmonary issues METs greater than 4 Labs today reviewed and acceptable for procedure Plan for general anesthesia Medications/Allergies Home Medications Medication Instructions Recorded Confirmed Last Taken Type acetaminophen 325 mg capsule 325 mg PO Q4H PRN pain/fever 11/15/23 06/08/24 Unknown History hydroxyzine HCl 10 mg tablet 10 mg PO TID PRN anxiety #30 tabs 02/28/24 06/08/24 Unknown Rx fluoxetine 40 mg capsule 40 mg PO DAILY #60 caps 04/22/24 06/08/24 06/08/24 Rx Allergies Allergy/AdvReac Type Severity Reaction Status Date / Time povidone-iodine Allergy SWELLING, Verified 06/08/24 09:50 [From Betadine] REDNESS, RASH soap [From Betadine] Allergy SWELLING, Verified 06/08/24 09:50 REDNESS, RASH Sulfa (Sulfonamide Allergy SWELLING Verified 06/08/24 09:50 Antibiotics) [facility] Anesthesia Medical History Mild major depression COVID-19 Nonmenstrual vaginal bleeding 43-year-old female with irregular vaginal spotting bleeding, seen in the ER. Patient is status post cone biopsy in September 2018. No cervical lesions seen. Patient refers she's been using Depo-Provera shots and she did not get the last one as scheduled. The patient was counseled the most common causes of abnormal menstrual bleeding are: anovulation, abnormal growths in the uterus, such as polyps or fibroids, long active contraceptives and bleeding disorders. Evaluation entails blood tests to look for a bleeding disorder, anemia, or thyroid disease, a pelvic ultrasound, which can detect endometrial polyps and fibroids, an endometrial biopsy or a hysteroscopy. Treatment options are medical treatment and surgical treatment. But the best treatment of heavy menstrual bleeding will depend on the cause of the bleeding and the patient?s preferences with need to prevent or desire to have children in the future. Medical treatment can be Hormonal control, (the pill, skin patch, vaginal ring, shot, hormonal IUD, and implant), Antifibrinolytic medicines, Non-steroidal anti-inflammatory drugs, Progestin pills, GnRH agonists. 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 Benign polyp and disordered endometrium. H/O tubal ligation History of biopsy (10/08/18) CERVICAL CONE BIOPSY per Dr. Barriga at [facility] 1. anterior cervical lip: rare dysplastic cells, excoriated mucosa 2. posterior cervical lip: no squamous dysplasia or endocervical atypia identified S/P breast biopsy, left Family History Mother Cancer Cervical Grandfather Cancer Maternal and Paternal-Pancreatic Other Dementia Thyroid disease Denies family history of Liver disease Diabetes CAD (coronary artery disease) Aneurysm Autoimmune disease Hyperlipidemia Psychiatric illness Chronic kidney disease (CKD) Bleeding disorder Lung disease Hypertension Stroke Social History Smoking and tobacco/nicotine status: never used tobacco/nicotine Alcohol intake: never Substance/Drug Use: never Lives independently: Yes Marital status: Single Number of children: 3 Current occupational status: employed 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 Special [place] needs: No Female Reproductive History Date of last menstrual period: 05/10/24 Data Anesthesia 06/08/24 10:00 06/08/24 10:00 Short CBC 06/08/24 Range/Units 10:00 WBC 7.79 (3.29-11.43) 10^3/uL Hgb 11.70 (11.27-16.99) g/dL Hct 37.3 (36-47) % MCV 83.4 L (85-98) fl Plt Count 343 (157-399) 10^3/cmm Neut % (Auto) 68.6 % Neut # (Auto) 5.35 (1.8-7.7) 10^3/uL Urine 06/08/24 Range/Units 10:00 Urine Color Yellow (Yellow) Urine Appearance Clear (CLEAR) Urine pH 6.5 (5-7) Ur Specific Trout 1.003 L (1.005-1.030) Urine Protein Negative (Negative) Urine Glucose (UA) Negative (Normal) Urine Ketones Negative (Negative) Urine Nitrate Negative (Negative) Urine Bilirubin Negative (Negative) Ur Leukocyte Esterase Negative (Negative) Cardiac Studies: No Data to Display
[2024-06-08 10:32] LABS: Alanine Aminotransferase 7 U/L (0-33); Albumin Level 4.2 g/dL (3.5-5.2); Alkaline Phosphatase 105 U/L (35-105); Anion Gap 13.3 (5-19); Aspartate Amino Transferase 15 U/L (0-32); Blood Urea Nitrogen 9 mg/dL (6-20); Calcium 9.1 mg/dL (8.5-10.5); Carbon Dioxide 26 mmol/L (22-29); Chloride 101 mmol/L (98-107); Globulin 3.1 g/dL (1.3-4.6); Glomerular Filtration Rate 131.7 mL/min (90-130); Glucose 81 mg/dL (65-115); Osmolality Calculated 282 mOsm/kg (285-295); Potassium 3.3 mmol/L (3.5-5.1); Sodium 137 mmol/L (136-145); Total Bilirubin 0.3 mg/dL (0.15-1.2); Total Protein 7.3 g/dL (6.6-8.7)
[2024-06-08 10:52] LABS: Add Urine Microscopic? YES; UA Manual Slide Review YES; UA Slide Review UA Slide Review Perf
[2024-06-08 10:53] LABS: RBC Urine RARE /hpf (0-2); Squamous Epithelial Cell Urine 0-4 /hpf (0-5)
[2024-06-16] VITALS (16 sets, daily range): BP systolic 93–129; BP diastolic 54–78; PULSE 60–79; RESP 14–169; TEMP 36.3–37; O2SAT 95–100; BMI 22.1
[2024-06-16] MEDS: scopolamine 1.5 Patch 1 PATCH TRANSDERMA (06:52)
[2024-06-16] MEDS: sodium chloride 0.9% 1,000 ML 30 ML IV (06:55)
[2024-06-16] MEDS: metroNIDAZOLE IV 500 MG/100 ML PREMIX 100 MG IV (07:00)
--- NOTE | 2024-06-16 07:07 | P.ANESUD_ITS ---
Pre-Anesthetic Update Pre-Anesthetic Assessment: Date of Surgery/Procedure: 06/16/24 Preop Laureen gnosis: Abnormal uterine bleeding unresponsive to medical management Proposed Procedure: Operation Date: 06/16/24 08:00 Proposed Procedures p Total Vaginal Hysterectomy - 29155, N93.9(Not Applicable) - Praveen Barriga MD Any changes to Pre-Anesthetic Assessment?: No Last Intake: Intake Last Liquid Date 06/15/24 Last Liquid Time 22:30 Last Solid Date 06/15/24 Last Solid Time 20:00 Vitals: Temperature 97.6 F 06/16/24 06:41 Temperature Source Temporal Artery S can 06/16/24 06:41 Pulse Rate 77 06/16/24 06:41 Respiratory Rate 18 06/16/24 06:41 Blood Pressure 121/63 06/16/24 06:52 Blood Pressure Celeste n 82 06/16/24 06:41 Pulse Oximetry 100 06/16/24 06:41 Oxygen Delivery Me thod Room Air 06/16/24 06:48 Exam: Pre-Anes Outpt Exam: alert, oriented x 3, clear to auscultation b ilaterally and regular rate & rhythm Cardiac Studies: No Data to Display
[2024-06-16 07:16] LABS: OR HCG Qualitative Urine Negative (Negative)
--- NOTE | 2024-06-16 07:39 | W.PM.OPSUD ---
Surgery/Procedure H&P Update DATE OF PROCEDURE: June 16, 2024 DATE H&P PERFORMED: 06/08/24 H&P UPDATE INFORMATION: I have reviewed H&P completed within last 30 days, I have examined patient prior to procedure and No changes to prior documentation PREOP DIAGNOSIS: Abnormal uterine bleeding unresponsive to medical management PLANNED PROCEDURE: Operation Date: 06/16/24 08:00 Proposed Procedures p Total Vaginal Hysterectomy - 48376, N93.9(Not Applicable) - Praveen Barriga MD
[2024-06-16] MEDS: ceFAZolin 2,000 mg SDV 2000 MG IVP (08:37)
[2024-06-16] MEDS: lidocaine-epi 2% PF 1:200,000 20 mL SDV 10 ML INJECTION (08:53)
--- NOTE | 2024-06-16 09:44 | W.PM.BPON ---
Date of Procedure: 06/16/24 Surgeon: Praveen Barriga MD Ent Consultant(s): Procedure(s) performed: Total vaginal hysterectomy Findings of the procedure(s): Enlarged fibroid uterus Estimated blood loss: 1 Specimen(s) removed: Uterus Post-operative diagnosis: Status post total vaginal hysterectomy
--- NOTE | 2024-06-16 09:45 | P.OP_ITS ---
Operative Report Date of procedure: June 16, 2024 Pre-op diagnosis: Abnormal uterine bleeding Fibroid uterus Post-op diagnosis: same Procedure done: Total vaginal Specimens removed/disposition: Uterus Surgeon: Praveen Barriga MD Estimated blood loss (mL): 100 IV fluids (mL): 800 Urine output (mL): 50 Complications: None Procedure: After informed consent and risks, benefits, indications and alternatives reviewed with the patient was taken to the operating room. The patient was placed in dorsal lithotomy position prepped, and draped in the usual sterile fashion. The pre-procedure timeout verifying the correct patient, procedure, site and side, could not requirements was performed and acknowledge by the OR team. A Maldonado catheter was placed. A Bookwalter vaginal retractor was placed into the vagina in usual manner visualize the cervix. Cervix was grasped with a single tooth tenaculum and circumferentially infiltrated with 2% lidocaine with epinephrine. Then cervix was circumferentially incised with bovie and the bladder was dissected off the pubovesical cervical fascia anteriorly with a sponge stick and Metzenbaum scissors. The anterior peritoneal reflection was identified and the anterior cul-de-sac was entered sharply with Metzenbaum scissors. The same procedure was performed posteriorly and a posterior colpotom y was made through the posterior cul-de-sac space without difficulty and the posterior blade of the Bookwalter vaginal retractor was advanced posteriorly into the cul-de-sac. At this time, the left and right uterosacral ligaments were isolated and ligated with 0 Vicryl. The LigaSure device was placed over the uterosacral ligaments on either side and was then used in a serial fashion up through the cardinal ligaments bilaterally cross-clamped, cut, and sealed with the LigaSure device. Finally, the uterine arteries were cross-clamped, cut, sealed and ligated with the LigaSure device. Hemostasis was assured. The broad ligaments were then serially clamped, sealed and cut with the LigaSure device on both sides. Excellent hemostasis was visualized. Both cornua were clamped, sealed and cut with the LigaSure device. Then the pedicles were then suture ligated with excellent hemostasis. The uterus was excised and submitted for pathologic evaluation. No other abnormalities were noted in the pelvic cavity. The peritoneum was then closed in a pursestring fashion with 0 Vicryl suture. Bludigo given IV the vaginal cuff angles were closed with tihdra-fk-modir #0 Vicryl suture on both sides and transfixed with the ipsilateral cardinal and uterosacral ligaments. The remainder of the vaginal cuff was closed with #0 Vicryl in a running locked fashion. At this time, instruments were removed from the vagina at hemostasis assured. Then the Maldonado was noted yielding clear blue urine. The patient was taken out of dorsal lithotomy position and awakened from the general anesthesia. The patient tolerated the procedure well and was taken to the PACU recovery room in a stable condition. Sponge, lap, needle and instruments counts were correct x3.
--- NOTE | 2024-06-16 10:10 | ANE.PACU2 ---
Inpatient post-anesthesia follow up: Airway intact: Yes Vital signs: Temperature 98.6 F Pulse Rate 70 Respiratory Rate 14 Blood Pressure 96/55 Pulse Oximetry 98 Oxygen Delivery Me thod Room Air Oxygen Flow Rate Fraction of Inspir ed Oxygen Hydration adequate: Yes Nausea and vomiting: No Pain level: 1 Mental status: Baseline
[2024-06-16] MEDS: HYDROcodone-acetaminophen 5-325 mg Tablet PO ×2 (11:01→21:11)
[2024-06-16] MEDS: ketorolac 30 mg/mL INJ IVP ×3 (11:01→23:57)
[2024-06-16] MEDS: docusate sodium 100 mg Capsule PO (17:19)
[2024-06-17 05:25] VITALS: BP 106/66; PULSE 62; RESP 16; TEMP 36.8; O2SAT 98
[2024-06-17 06:05] LABS: Hematocrit 32.7 % (36-47); Mean Corpuscular HGB Conc 30.9 g/dL (30-55); Mean Corpuscular Hemoglobin 26.3 pg (27-33); Mean Corpuscular Volume 85.2 fl (85-98); Mean Platelet Volume 9.8 fL (7.4-10.4); Platelet Count 289 10^3/cmm (157-399); Red Blood Count 3.84 10^6/uL (3.85-5.65); Red Cell Distribution Width 17.6 % (12.1-15.1); White Blood Count 9.26 10^3/uL (3.29-11.43)
[2024-06-17 09:15] VITALS: BP 114/66; PULSE 78; RESP 17; TEMP 36.8; O2SAT 97
[2024-06-17] MEDS: ibuprofen 800 mg tablet PO (09:20)
[2024-06-17] MEDS: docusate sodium 100 mg Capsule PO (09:20)
[2024-06-17] MEDS: fluoxetine 20 mg Capsule 40 MG PO (09:20)
[2024-06-17] MEDS: HYDROcodone-acetaminophen 5-325 mg Tablet PO (11:50)
--- NOTE | 2024-06-17 14:54 | PM.OBGYDC ---
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 Ashby 49-year-old female G5, P3 with a history of abnormal uterine bleeding unresponsive to medical management. She was admitted for planned total vaginal hysterectomy. The procedure was performed without complication. Postop observation has been uneventful. She is afebrile and hemodynamically stable postoperative day 1. Tolerating diet well. Ambulating without difficulty. She was counseled regarding pelvic rest for 6 weeks (no sex, no tampons, no vaginal douches). Return to the emergency room if any fever, increased bleeding or pain and heavy weight lifting limitations to 10 pounds. Physical Exam Narrative: GA: Alert and oriented ?3. HEENT: WNL. Heart: Regular rate and rhythm. Lungs: Clear to auscultation bilaterally. Abdomen: Bowel sounds present, nontender. 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 Extremities: No edema, no cyanosis, no calves pain. Urinary Catheter Management: Maldonado: Cath Placed During This Visit: yes, but has since been removed by the nurse Reason for Continuing Indwelling Catheter: Decision to DC Catheter Urinary Catheter Date of Insertion: 06/16/24 Urinary Catheter Time of Insertion: 08:30 Date Urinary Catheter Removed: 06/17/24 Time Urinary Catheter Discontinued: 05:40 History History History 5 Term 3 0 Miscarriages/Ectopic 2 Living Children 3 Discharge Data Studies Completed and Pending Pending at discharge Category Date Time Status Pathology: Surgical [PTH] Routine Pth 06/16/24 09:06 Received Laboratory Results WBC 9.26 10^3/uL (3.29-11.43) 06/17/24 05:59 RBC 3.84 10^6/uL (3.85-5.65) L 06/17/24 05:59 Hgb 10.10 g/dL (11.27-16.99) L 06/17/24 05:59 Hct 32.7 % (36-47) L 06/17/24 05:59 MCV 85.2 fl (85-98) 06/17/24 05:59 MCH 26.3 pg (27-33) L 06/17/24 05:59 MCHC 30.9 g/dL (30-55) 06/17/24 05:59 RDW 17.6 % (12.1-15.1) H 06/17/24 05:59 Plt Count 289 10^3/cmm (157-399) 06/17/24 05:59 MPV 9.8 fL (7.4-10.4) 06/17/24 05:59 Neut % (Auto) 68.6 % 06/08/24 10:00 Lymph % (Auto) 23.5 % 06/08/24 10:00 [place] % (Auto) 6.4 % 06/08/24 10:00 Eos % (Auto) 0.8 % 06/08/24 10:00 Baso % (Auto) 0.4 % 06/08/24 10:00 Neut # (Auto) 5.35 10^3/uL (1.8-7.7) 06/08/24 10:00 Lymph # (Auto) 1.8 10^3/uL (0.8-4.8) 06/08/24 10:00 [place] # (Auto) 0.5 10^3/uL (0.2-0.9) 06/08/24 10:00 Eos # (Auto) 0.1 10^3/uL (0.0-0.8) 06/08/24 10:00 Baso # (Auto) 0.0 10^3/uL (0.0-0.1) 06/08/24 10:00 Nucleated RBC % (auto) 0 % 06/08/24 10:00 Nucleated RBCs # 0.0 /100WBC 06/08/24 10:00 Sodium 137 mmol/L (136-145) 06/08/24 10:00 Potassium 3.3 mmol/L (3.5-5.1) L 06/08/24 10:00 Chloride 101 mmol/L (98-107) 06/08/24 10:00 Carbon Dioxide 26 mmol/L (22-29) 06/08/24 10:00 Anion Gap 13.3 (5-19) 06/08/24 10:00 BUN 9 mg/dL (6-20) 06/08/24 10:00 Creatinine 0.5 mg/dL (0.5-0.9) 06/08/24 10:00 GFR Calculation 131.7 mL/min (90-130) H 06/08/24 10:00 Glucose 81 mg/dL (65-115) 06/08/24 10:00 Calculated Osmolality 282 mOsm/kg (285-295) L 06/08/24 10:00 Calcium 9.1 mg/dL (8.5-10.5) 06/08/24 10:00 Total Bilirubin 0.3 mg/dL (0.15-1.2) 06/08/24 10:00 AST 15 U/L (0-32) 06/08/24 10:00 ALT 7 U/L (0-33) 06/08/24 10:00 Alkaline Phosphatase 105 U/L (35-105) 06/08/24 10:00 Total Protein 7.3 g/dL (6.6-8.7) 06/08/24 10:00 Albumin 4.2 g/dL (3.5-5.2) 06/08/24 10:00 Globulin 3.1 g/dL (1.3-4.6) 06/08/24 10:00 Urine Color Yellow (Yellow) 06/08/24 10:00 Urine Appearance Clear (CLEAR) 06/08/24 10:00 Urine pH 6.5 (5-7) 06/08/24 10:00 Ur Specific [place] 1.003 (1.005-1.030) L 06/08/24 10:00 Urine Protein Negative (Negative) 06/08/24 10:00 Urine Glucose (UA) Negative (Normal) 06/08/24 10:00 Urine Ketones Negative (Negative) 06/08/24 10:00 Urine Blood Non-haemolysed trace (Negative) 06/08/24 10:00 Urine Nitrate Negative (Negative) 06/08/24 10:00 Urine Bilirubin Negative (Negative) 06/08/24 10:00 Urine Urobilinogen 0.2 mg/dL (Negative) 06/08/24 10:00 Ur Leukocyte Esterase Negative (Negative) 06/08/24 10:00 Urine RBC Rare /hpf (0-2) 06/08/24 10:00 Urine WBC None /hpf (0-5) 06/08/24 10:00 Ur Squamous Epith Cells 0-4 /hpf (0-5) H 06/08/24 10:00 Amorphous Sediment Not Reportable 06/08/24 10:00 Urine Bacteria None /hpf (NONE) 06/08/24 10:00 Hyaline Casts None /lpf 06/08/24 10:00 Urine HCG, Qual Negative (Negative) 06/16/24 06:34 Blood Type O Positive 06/16/24 07:51 Rho(D) Type Rh positive 06/16/24 07:51 Antibody Screen Negative 06/16/24 07:51 Vitals Last Vital Signs Temp 98.3 F 06/17/24 09:15 Pulse 78 06/17/24 09:15 Resp 17 06/17/24 09:15 BP 114/66 06/17/24 09:15 Pulse Ox 97 06/17/24 09:15 O2 Del Method Room Air 06/17/24 09:15 Results Labs OB ([facility]): Blood Type O Positive 06/16/24 Antibody Screen Negative 06/16/24 Hct 32.7 % (36-47) L 06/17/24 Hgb 10.10 g/dL (11.27-16.99) L 06/17/24 Rho(D) Type Rh positive 06/16/24 Plt Count 289 10^3/cmm (157-399) 06/17/24 TSH 1.45 uIU/mL (0.27-4.20) 12/07/22 FSH 8.9 mIU/mL 12/07/22 Ser , Semi-Qnt 1.00 mIU/mL 12/07/22 Micro Urine Specimen 03/19/23 Prolactin 15.80 ng/mL (4.8-23.3) 12/07/22 Discharge Plan Discharge Patient Disposition: Home Condition: Stable Prescriptions: New hydrocodone-acetaminophen 5-325 mg tablet 1 tab PO Q4H PRN (Reason: pain) Qty: 20 0RF acetaminophen 325 mg capsule 325 mg PO Q4H PRN (Reason: fever or pain) Qty: 60 0RF ibuprofen 800 mg tablet 800 mg PO TID PRN (Reason: pain) Qty: 60 0RF Continued fluoxetine 40 mg capsule 40 mg PO DAILY Qty: 90 1RF hydroxyzine HCl 10 mg tablet 10 mg PO TID PRN (Reason: anxiety) Qty: 30 2RF acetaminophen 325 mg capsule 325 mg PO Q4H PRN (Reason: pain/fever) Discharge Orders: Discharge Order (Routine); Ordered 06/17/24 Ordered By: Praveen Barriga Referrals: Praveen Barriga MD [Physician] - 2 weeks Discharge Diet: Usual diet Discharge Activity: Limit activity as instructed Patient Instructions: Acute Wound Care (DC), Vaginal Hysterectomy (DC), OB Discharge Report, OB Food/Drug Interaction Guide, Opioid Safety, Post Anesthesia Care Activity Restrictions/Additional Instructions: 1. Please call [facility] on next working day to make your post-operative appointment in 2 weeks. 2. Please stay home until you come back to the clinic on first post-hospatilization check up. 3. Please follow instructions on your medications CAREFULLY. 4. If you have abdominal incision, do not cover it unless dressing is necessary because of drainage. OK to shower, but avoid bath. Leave steri-strips until they fall off. If they are still on one week after surgery, you may remove them. 5. If you had vaginal surgery or vaginal repair, Dr. Barriga may instruct you to take SITZ bath. 6. Yellow, blood tinged odorous vaginal discharge is usually normal after hysterectomy or vaginal surgeries. 7. No SEXUAL INTERCOURSE, tampons, or douches until you are completely released from the post-operative care. 8. Avoid constipation by eating right and maybe using some Metamucil or Milk of Magnesia. 9. All prescription refills are given during the working hours. Please do no wait till it runs out. Call the clinic at [phone] before your medication runs out. The clinic will get in touch with your doctor to prescribe medications if necessary. 10. Please remain within 40 mile radius from our hospital because emergencies do happen now and then during the post-operative period. 11. If you have stairs at home, take one step at a time slowly and minimize the number of trips. It helps to stay in one floor for the next few days. No lifting except what you can lift by one hand until you are released from the post-operative care. 12. Driving is discouraged until you are well healed. It may be 3-4 weeks before you feel strong enough to drive. You should be able to turn and look through the rear window without pain and you should be able to push the brake pedal very hard without pain before you drive. No fast rules, but SAFETY should be your primary concern. DO NOT drive if you are on sedating medications such as narcotics. 13. Call the clinic (during working hours) to make urgent appointment or go to the Emergency room, if any of the following occurs: i. Vaginal bleeding becomes heavy, more than a period. ii. Incision becomes red and sore, or drains pus. iii. Your TEMPERATURE is over 100.4F or you have chill. iv. IV site becomes red and swollen (a little ``knot?? is usually OK) v. Persistent nausea and vomiting vi. Persistent constipation or diarrhea vii. Rash or allergic reaction to medications. 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
[2024-06-17 16:42] VITALS: BP 87/50; PULSE 66; TEMP 36.8
[2024-06-17 16:45] VITALS: BP 87/50; PULSE 66; TEMP 36.8; O2SAT 98
== END 2024-06-17 16:45 | disposition home or self-care (01) ==
LOC: OBGYN 10:06
PROVIDERS: Admitting Provider Obstetrics & Gynecology; PCP Family Medicine; Visit Provider Obstetrics & Gynecology
PROC: (CPT 58260; principal; 2024-06-16 08:00)
DX: N93.9 Abnormal uterine and vaginal bleeding, unspecified (principal); D25.9 Leiomyoma of uterus, unspecified; K21.9 Gastro-esophageal reflux disease without esophagitis; F41.9 Anxiety disorder, unspecified; F32.0 Major depressive disorder, single episode, mild
CPT/HCPCS: 58260; 36415; 80053; 81001; 81025; 85025; 85027; 86850; 86900; 88307; 96374; 96376; G0378; J0131; J0690; J1885; J2710; J3010; J3490; J7030

== ENCOUNTER → 2025-02-01 14:53 | Outpatient (BNVA) | payer BC, SELFPAY | PROVIDERS: PCP Family Medicine; Visit Provider Emergency Medicine | DX: M79.672 Pain in left foot (principal) | CPT/HCPCS: 73630 ==